=== PATIENT | female | born 1995 | race Caucasian/White ===

== ENCOUNTER 2021-06-24 17:19 | Emergency (ER) | payer OTHER, SELFPAY ==
[2021-06-24 17:25] VITALS: BP 107/44; PULSE 117; RESP 16; TEMP 38.9; O2SAT 100
--- NOTE | 2021-06-24 17:42 | ED.URI ---
HPI - URI/Sore Throat General Chief Complaint: Nausea/Vomiting/Diarrhea Stated Complaint: fever chills and aches Time Seen by Provider: 06/24/21 17:42 Source: patient Mode of arrival: ambulatory Limitations: no limitations History of Present Illness HPI Narrative: 25 y/o female presented for c/o vomiting and fever. States body aches, HUERTAS, and fever started 5 days ago. Fever up to 104. Taking otc meds and using ice packs for symptoms. Denies associated sore throat, cough, sob, wheezing, abd pain, dysuria, flank pain. LMP 04/05/21. States her Obgyn did urine preg test 2 weeks ago, and she has taken Bactrim for vaginal cyst, and denies any complications. Home covid test negative 3 days ago. Related Data Home Medications Medication Instructions Recorded Confirmed citalopram 20 mg PO DAILY 06/24/21 06/24/21 norethindrone-e.estradiol-iron 1 tablet PO DAILY 06/24/21 06/24/21 [ ()] sulfamethoxazole 500 mg PO Q12H 06/24/21 06/24/21 Allergies Allergy/AdvReac Type Severity Reaction Status Date / Time No Known Allergies Allergy Verified 06/24/21 17:47 Review of Systems Review of Systems: CONSTITUTIONAL: reports body aches, fever, chills EYES: Denies visual changes, redness, or discharge. ENT: Denies rhinorrhea, congestion, sore throat, or otalgia. CARDIOVASCULAR: Denies chest pain, palpitations, or edema. RESPIRATORY: Denies cough or dyspnea. GASTROINTESTINAL: Denies abdominal pain GENITOURINARY: Denies dysuria or hematuria. SKIN: Denies rash, itching, or wounds. MUSCULOSKELETAL: joint pain, or myalgia. NEUROLOGIC: Denies headache, numbness, tingling, or weakness. PSYCH: Denies depression or anxiety. All systems reviewed & are unremarkable except as noted in HPI and below PMFSH Comments At time of signature, I have reviewed and agree with nursing past medical, surgical, social and family history unless otherwise noted. Please see nursing chart for further information. There is no relevant family history pertinent to the presenting complaint Exam Narrative: GENERAL: ill-appearing, no acute distress. HEAD: Normocephalic, atraumatic. EYES: EOMI. No redness or drainage. Conjunctivae normal. ENT: Mucous membranes pink and moist. No rhinorrhea. TMs normal bilaterally. Throat normal. Uvula midline. NECK: Normal AROM. Supple. No lymphadenopathy. CHEST: No respiratory distress. Clear to auscultation. HEART: Regular rate and rhythm. No murmur appreciated. Normal peripheral pulses. ABDOMEN: Soft, nontender, nondistended, normal active bowel sounds. MUSCULOSKELETAL: No bony tenderness. EXTREMITIES: Normal range of motion. No edema. SKIN: Warm, dry, no rash. Capillary refill normal. Normal skin turgor. NEURO: No focal deficits. Alert and oriented x3. Gait steady. PSYCH: Normal affect. No signs of depression or anxiety. Course Course Emergency Course: Patient is aware of diagnosis, understands and agrees to treatment plan. Anticipatory guidance given. Patient agrees to follow-up as directed and is aware of reasons to seek care at the emergency department. Portions of this record may have been created with voice recognition software Level of Care: Express Care Visit Vital Signs Vital signs: Vital Signs Temperature 102.1 F H 06/24/21 17:25 Pulse Rate 117 H 06/24/21 17:25 Respiratory Rate 16 06/24/21 17:25 Blood Pressure 107/44 L 06/24/21 17:25 Pulse Oximetry 100 06/24/21 17:25 Temperature 102.1 F H 06/24/21 17:25 Pulse Rate 117 H 06/24/21 17:25 Respiratory Rate 16 06/24/21 17:25 Blood Pressure 107/44 L 06/24/21 17:25 Pulse Oximetry 100 06/24/21 17:25 MDM - URI/Sore Throat MDM Narrative Medical decision making narrative: strep covid and flu negative She denies any complaints beyond n/v and fever. Endorses exposure to friend with 'virus' recently. She is advised to monitor sx and go to the ER for worsening condition. v/u. Differential Diagnosis Differential diagn
[2021-06-24] MEDS: ONDANSETRON HCL ODT 4 MG TABLET SUBLINGUAL (17:44)
[2021-06-24] MEDS: ACETAMINOPHEN 500 MG TABLET 1000 MG PO (18:00)
[2021-06-24 18:25] VITALS: TEMP 39.6
== END 2021-06-24 18:25 | disposition home or self-care (01) ==
PROVIDERS: Emergency Provider Nurse Practitioner Family; PCP Internal Medicine
DX: B34.9 Viral infection, unspecified (principal); Z20.822 Contact with and (suspected) exposure to COVID-19
CPT/HCPCS: 87081; 87426; 87804; 87880; 99203; A9270; C9803; G0463

== ENCOUNTER 2021-06-24 19:03 | Emergency (ER) | payer OTHER, SELFPAY ==
[2021-06-24] VITALS (11 sets, daily range): BP systolic 104–112; BP diastolic 60–67; PULSE 82–107; RESP 12–21; TEMP 37.6–39.4; O2SAT 99–100
--- NOTE | ~2021-06-24 | XR_ITS ---
EXAMINATION: XR chest 1V portable Exam Date/Time: 06/24/2021 21:00 CDT CLINICAL HISTORY: fever Comparison: None available. RESULT: Lines, tubes, and devices: None. Lungs and pleura: Clear. Cardiomediastinal silhouette: Normal cardiomediastinal silhouette. Other: No acute osseous or upper abdominal finding. IMPRESSION: No acute cardiopulmonary process Reviewed, dictated and finalized at [facility].
--- NOTE | ~2021-06-24 | CT_ITS ---
EXAMINATION: CT abdomen pelvis w con DATE: 06/24/2021 23:31 INDICATION: Right lower quadrant abdominal pain, fever, vomiting TECHNIQUE: Computed tomography (CT) of the abdomen and pelvis was performed with 100 CC Omnipaque 300 intravenous contrast. Automated exposure control and iterative reconstruction technique were employe d. Exam dose: 254.53 mGy-cm total exam DLP. COMPARISON: None. FINDINGS: 5 mm subpleural nodule of the middle lobe with relatively high attenuation, suggestive of c alcified pulmonary granuloma. Minimal dependent bilateral lower lobe atelectasis. Normal heart size. No pericardial or pleural effusion. There is edema of the gallbladder wall versus mild pericholecystic fluid, suggesting acute cholecystitis. Consider gallbladder ultrasound and if ne cessary radionuclide hepatobiliary scan. No bile duct dilatation. There is a focal area of diminished attenuation of the medial segment hepatic lobe at the anterior as pect of the fissure for the ligamentum teres, which may represent focal fat necrosis versus hemangiom a or cyst. The liver is otherwise unremarkable. No pancreatic mass lesion, calcification or ductal dilatation. Normal splenic size. Normal morphology of the adrenal glands. No renal mass lesion or urinary tract calculus or hydroureteronephrosis. The urinary bladder is unremarkable. There is mild free pelvic fluid collection, primarily in the dependent lower right pelvis. There is a tubular structure in the right pelvic area which may represent hydrosalpinx or pyosalpinx. Consider PID. No appendicitis or ruptured ectopic gestation are less likely considerations. Fluid is noted in the small bowel and rectum and colon.; No evidence of bowel obstruction, bowel wall thickening, pneumatosis or intraperitoneal free air Included skeletal structures are unremarkable other than probable bone island of the L1 vertebral bod y.. IMPRESSION: Gallbladder wall edema versus pericholecystic fluid collection; recommend clinical correl ation to exclude acute cholecystitis. Lumbar ultrasound and possibly radionuclide hepatobiliary scan may be of assistance as clinically appropriate Fluid distended tubular structure in the right adnexal area, which may represent hydrosalpinx or pyos alpinx; consider PID, ruptured ectopic, less likely appendicitis Fluid in the small bowel, colon and rectum, with rectal and colon air-fluid levels, without obstructi on. Consider enterocolitis Reviewed, dictated and finalized at [facility]. Reviewed, dictated and finalized at [facility]. IMPRESSION: Gallbladder wall edema versus pericholecystic fluid collection; rec ommend clinical correlation to exclude acute cholecystitis. Lumbar ultrasound a nd possibly radionuclide hepatobiliary scan may be of assistance as clinically appropriate Fluid distended tubular structure in the right adnexal area, which may represen t hydrosalpinx or pyosalpinx; consider PID, ruptured ectopic, less likely appen dicitis Fluid in the small bowel, colon and rectum, with rectal and colon air-fluid lev els, without obstruction. Consider enterocolitis
--- NOTE | 2021-06-24 20:52 | ED.FEVER ---
HPI - Fever General Chief Complaint: Fever <LONG Cevallos Last Filed: 06/25/21 02:14> Stated Complaint: fever, vomiting <LONG Cevallos Last Filed: 06/25/21 02:14> Time Seen by Provider: 06/24/21 20:44 <LONG Cevallos Last Filed: 06/25/21 02:14> Source: patient <LONG Cevallos Last Filed: 06/25/21 02:14> Mode of arrival: ambulatory <LONG Cevallos Last Filed: 06/25/21 02:14> Limitations: no limitations <LONG Cevallos Last Filed: 06/25/21 02:14> History of Present Illness HPI Narrative: This is a 25-year-old female that presents to the emergency department for fevers. Present over the last couple of days. Associated with myalgias, nausea, vomiting and diarrhea. Reports she had a coworker that was also recently sick. She was seen at urgent care and had negative COVID, influenza, and strep screens. She had continued fever which prompted her to be seen in the ER. Denies cough, congestion, sore throat, or dysuria. <LONG Cevallos Last Filed: 06/25/21 02:14> Related Data Home Medications: Home Medications Medication Instructions Recorded Confirmed citalopram 20 mg PO DAILY 06/24/21 06/24/21 norethindrone-e.estradiol-iron 1 tablet PO DAILY 06/24/21 06/24/21 [ (28)] sulfamethoxazole 500 mg PO Q12H 06/24/21 06/24/21 fluconazole 06/25/21 <LONG Cevallos Last Filed: 06/25/21 02:14> Allergies/Adverse Reactions: Allergies Allergy/AdvReac Type Severity Reaction Status Date / Time No Known Allergies Allergy Verified 06/24/21 17:47 <LONG Cevallos Last Filed: 06/25/21 02:14> Review of Systems Review of Systems: CONSTITUTIONAL: Reports fever ENT: Denies congestion, sore throat CARDIOVASCULAR: Denies chest pain RESPIRATORY: Denies cough or dyspnea. GASTROINTESTINAL: Reports abdominal pain, nausea, vomiting, and diarrhea. GENITOURINARY: Denies dysuria or hematuria. <Mary Mckoy PA-C - Last Filed: 06/25/21 02:14> All systems reviewed & are unremarkable except as noted in HPI and below <Mary Mckoy PA-C - Last Filed: 06/25/21 02:14> [facility] Past Medical History Medical History: Medical History (Updated 06/25/21 @ 02:10 by Mary Mckoy PA-C) History of depression <Mary Mckoy PA-C - Last Filed: 06/25/21 02:14> Social History Social History: Social History (Updated 06/24/21 @ 20:54 by Mary Mckoy PA-C) Substance use: never <Mary Mckoy PA-C - Last Filed: 06/25/21 02:14> Exam Narrative: GENERAL: Well-appearing, well-nourished, and in no acute distress. HEAD: Normocephalic, atraumatic. EYES: EOMI. CHEST: Clear to auscultation. No respiratory distress. No wheezes rales or rhonchi HEART: Regular rate and rhythm. No murmur heard. Normal peripheral pulses. ABDOMEN: Soft, nondistended, normal active bowel sounds. Tender to palpation of the right lower quadrant, without guarding. No CVA tenderness EXTREMITIES: Normal range of motion. No edema. SKIN: Warm, dry, no rash. NEURO: No focal deficits. Alert and oriented x3. PSYCH: Normal mood and affect PELVIC: Normal external genitalia. Cervix with mild redness/irritation of the os. Mild amount of white discharge in the vaginal vault <Mary Mckoy PA-C - Last Filed: 06/25/21 02:14> Course [employer]ENERS INSPECTOR/PA Physician Supervision For this patient encounter, I reviewed the SLIDE FASTENERS INSPECTOR or PA documentation, treatment plan, and medical decision making <Graham aPcheco MD - Last Filed: 06/25/21 03:15> Vital Signs Vital signs: Vital Signs Temperature 103.0 F H 06/24/21 19:39 Pulse Rate 107 H 06/24/21 19:39 Respiratory Rate 18 06/24/21 19:39 Blood Pressure 112/63 06/24/21 19:39 Pulse Oximetry 100 06/24/21 19:39 Temperature 98.8 F 06/25/21 01:39 Pulse Rate 88 06/25/21 02:25 Respiratory Rate 14 06/25/21 02:25 Blood Pressure 123/87 06/25/21 02:25 Pul
[2021-06-24] MEDS: IBUPROFEN IV 800 MG/200 ML 800 MG/200 ML BAG 400 MG IVPB (21:03)
[2021-06-24] MEDS: SODIUM CHLORIDE 0.9% IV 1,000 ML 999 ML IV CONT ×2 (21:03→22:26)
--- NOTE | 2021-06-24 21:20 | PC.NURSE ---
Patient aware of need for urine specimen. Patient states unable to provide one at this time, but will try after some fluids infuse.
--- NOTE | 2021-06-24 21:55 | PC.NURSE ---
Called lab to see why labs have not resulted yet when they were scanned and sent down over an hour ago, he stated he will check and call back.
[2021-06-24 22:05] LABS: Appearance Urine Clear (Clear); Bilirubin Urine 2+ (Negative); Blood Urine Negative (Negative); Color Urine Yellow (Yellow); Glucose Urine UA Trace mg/dL (Negative); Ketones Urine 2+ mg/dL (Negative); Leukocyte Esterase Ur Negative LEU/UL (Negative); Nitrate Urine Negative (Negative); Protein Urine 1+ mg/dL (Negative); Specific Grav Ur 1.025 (1.001-1.035)
[2021-06-24 22:10] LABS: Bacteria Urine Trace /hpf; Mucus Urine Rare /lpf; Squamous Epithelial Cell Urine Many /hpf (Few)
[2021-06-24 22:11] LABS: Add Urine Microscopic? YES
--- NOTE | 2021-06-24 22:15 | PC.NURSE ---
Called lab back, spoke to Dari, she stated she does not have any specimens for the patient, she stated she will un receive them to be redrawn.
[2021-06-24 22:43] LABS: Eosinophils Percent Auto 1.2 % (0-4.4); Hematocrit 34.3 % (37.0-47.0); Hemoglobin 11.7 g/dL (12.0-15.0); Immature Granulocyte Absolute 0.02 K/mm3 (0.00-0.031); Immature Granulocyte Percent A 0.8 % (0-0.5); Lymphocytes Absolute Auto 0.13 K/mm3 (0.9-3.2); Lymphocytes Percent Auto 5.1 % (18.3-44.2); Mean Corpuscular HGB Conc 34.1 g/dl (32-36); Mean Corpuscular Hemoglobin 29.8 pg (26-34); Mean Corpuscular Volume 87.5 fl (80-100); Mean Platelet Volume 9.5 fl (7.4-10.4); Monocytes Absolute Auto 0.1 K/mm3 (0.1-0.6); Monocytes Percent Auto 3.5 % (2.6-8.5); Neutrophils Absolute Auto 2.3 K/mm3 (1.3-6.7); Neutrophils Percent Auto 89.4 % (45.5-73.1); Platelet Count Result 170 k/mm3 (150-375); Red Blood Count 3.92 M/mm3 (4.2-5.4); Red Cell Distribution Width 12.5 % (11.5-14.5); White Blood Count 2.6 K/mm3 (4.5-10.0)
[2021-06-24 23:00] LABS: Alanine Aminotransferase 35 U/L (6-35); Albumin Level 3.6 g/dL (3.5-5.1); Alkaline Phosphatase 52 U/L (38-126); Anion Gap 10 mmol/L (8-16); Aspartate Amino Transferase 57 U/L (14-36); Bilirubin,Total 0.3 mg/dL (0.2-1.3); Blood Urea Nitrogen 10 mg/dL (7-17); Calcium 7.7 mg/dL (8.4-10.2); Carbon Dioxide 21 mmol/L (22-30); Chloride 98 mmol/L (98-107); Estimated CRCL calculation 67 ml/min; Estimated Glomerular Filt Rate 60; Glucose 106 mg/dL (65-110); Lipase 29 U/L (23-300); Potassium 3.7 mmol/L (3.4-5.0); Sodium 129 mmol/L (137-145)
[2021-06-25] VITALS: PULSE 90; RESP 14; O2SAT 100
[2021-06-25 01:39] VITALS: BP 103/65; PULSE 81; RESP 17; TEMP 37.1; O2SAT 100
[2021-06-25] MEDS: FLUCONAZOLE 150 MG TABLET PO (02:01)
[2021-06-25 02:25] VITALS: BP 123/87; PULSE 88; RESP 14; O2SAT 97
== END 2021-06-25 02:25 | disposition home or self-care (01) ==
PROVIDERS: Physician Assistant; Emergency Provider Emergency Medicine; PCP Internal Medicine
DX: N73.0 Acute parametritis and pelvic cellulitis (principal); K82.8 Other specified diseases of gallbladder; R91.1 Solitary pulmonary nodule; F32.A Depression, unspecified
CPT/HCPCS: 36415; 71045; 74177; 80053; 81001; 81025; 83690; 85025; 87070; 87081; 87086; 87088; 87426; 87491; 87591; 87804; 87808; 87880; 96361; 96365; 99284; A9270; C9803; J0696; J1741; J7030; Q9967